=== PATIENT | female | born 1965 | race Caucasian/White ===

== ENCOUNTER 2016-04-27 15:54 | Emergency (ER) | payer OTHER ==
[2016-04-27 19:09] LABS: BASOPHIL 0.5 % (0-2); EOSINOPHIL 4.1 % (0-5); HCT 42.5 % (37.0-47.0); LYMPHOCYTE 40.6 % (15-48); MCH 29.8 pg (25.0-31.0); MCHC 35.3 g/dL (32.0-36.0); MCV 84.5 fL (78.0-100.0); MONOCYTE 8.6 % (0-12); NEUTROPHIL 46.2 % (41-80); PLT 281 K/uL (150-400); RBC 5.03 M/uL (4.20-5.40); RDW 14.4 % (11.5-14.0); WBC 10.2 K/uL (4.0-10.5)
[2016-04-27 19:32] LABS: CREATININE 0.5 mg/dL (0.5-1.0); POTASSIUM 3.6 mmol/L (3.5-5.1)
== END 2016-04-27 20:33 | disposition home or self-care (01) ==
LOC: FER 15:54
PROVIDERS: Internal Medicine
DX: G43.909 Migraine, unspecified, not intractable, without status migrainosus (principal); E03.9 Hypothyroidism, unspecified; Z79.899 Other long term (current) drug therapy
CPT/HCPCS: 36415; 80048; 85025; J1885; J2060; J2765